=== PATIENT | female | born 1980 | race Two or more races ===

== ENCOUNTER 2021-03-10 15:01 | Day surgery (SDC) | payer BC ==
[~2021-03-10] VITALS: Ht 147.3 cm; Wt 58.1 kg
[2021-03-10] MEDS ORDERED: LACTATED RINGERS 1,000 ML IV SCH (15:30)
[2021-03-10] MEDS ORDERED: LIDOCAINE-MPF 1%, 2ML INFIL ONE (15:30)
[2021-03-10] MEDS ORDERED: CHLORHEXIDINE 15 ML UDC PO ONE (15:30)
[2021-03-10] MEDS ORDERED: MIDAZOLAM 1 MG/ML, 2ML ONE (15:34)
[2021-03-10] MEDS ORDERED: FENTANYL PF 100 MCG/2ML ONE (15:34)
[2021-03-10] MEDS ORDERED: BCP (15:48)
[2021-03-10 15:52] VITALS: BP 116/72
[2021-03-10] MEDS ORDERED: OXYTOCIN 10 UNITS/ML, 1ML ONE (15:55)
[2021-03-10] MEDS ORDERED: SILVER NITRATE STICK TP ONE (15:55)
[2021-03-10] MEDS ORDERED: BUPIVACAINE/PF 0.25% ONE (15:55)
[2021-03-10] MEDS ORDERED: MISOPROSTOL 200 MCG TABLET ONE (15:55)
[2021-03-10] MEDS ORDERED: METHYLERGONOVINE 0.2 MG/ML IM ONE (15:56)
[2021-03-10] MEDS ORDERED: EPINEPHRINE 1 MG/ML, 1ML ONE (15:56)
[2021-03-10 15:59] LABS: BASOPHILS % (AUTO) 1 % (0-1); EOSINOPHILS % (AUTO) 1 % (1-7); LYMPHOCYTES % (AUTO) 34 % (22-44); MEAN CORPUSCULAR HEMOGLOBIN 30.7 pg (27.0-34.8); MEAN CORPUSCULAR HGB CONC 34.2 g/dL (32.4-35.8); MEAN PLATELET VOLUME 7.2 fL (7.4-10.4); MONOCYTES % (AUTO) 6 % (2-9); NEUTROPHILS % (AUTO) 58 % (42-75); PLATELET COUNT 329 x10^3/uL (130-400); RED BLOOD COUNT 4.32 x10^6/uL (3.82-5.3); RED CELL DISTRIBUTION WIDTH 13.6 % (9.6-15.2)
[2021-03-10 16:00] LABS: MD NO
[2021-03-10] MEDS ORDERED: PROMETHAZINE 25 MG/ML, 1ML IVPush PRN (16:00)
[2021-03-10] MEDS ORDERED: FENTANYL PF 100 MCG/2ML IV PRN (16:00)
[2021-03-10] MEDS ORDERED: ONDANSETRON 2MG/ML, 2ML IVPush PRN (16:00)
[2021-03-10] MEDS ORDERED: OXYcodone 5 MG/5 ML ORAL.SOL UDC PO PRN ×2 (16:00→20:00)
[2021-03-10] MEDS ORDERED: HYDROmorphone 1 MG/ML, 1ML INJ IVPush PRN (16:00)
[2021-03-10] MEDS ORDERED: MEPERIDINE/PF 25MG/0.5ML IVPush PRN (16:00)
[2021-03-10] MEDS ORDERED: HYDROcodone/APAP 7.5-325MG/15ML UDC PO PRN (16:00)
[2021-03-10 16:09] LABS: HCG UR SG 1.007 (1.003-1.030)
[2021-03-10] MEDS ORDERED: PROPOFOL 10 MG/ML, 20ML ONE (17:06)
[2021-03-10] MEDS ORDERED: ONDANSETRON 2MG/ML, 2ML ONE (17:06)
[2021-03-10] MEDS ORDERED: DEXAMETHASONE 4 MG/ML, 1ML ONE (17:06)
[2021-03-10] MEDS ORDERED: CEFAZOLIN 1,000 MG ONE (17:06)
[2021-03-10 19:47] VITALS: BP 97/66
[2021-03-10] MEDS ORDERED: morphine SULFATE 10 MG/ML, 1ML IV PRN (20:00)
[2021-03-10] MEDS ORDERED: KETOROLAC 30 MG/1 ML IV PRN (20:00)
[2021-03-10] MEDS ORDERED: IBUP-1222 PO (20:22)
[2021-03-10] MEDS ORDERED: OXYC1TAB14 PO (20:22)
[2021-03-10] MEDS ORDERED: DOCU-131 PO (20:23)
== END 2021-03-10 21:50 | disposition home or self-care (01) ==
LOC: OR 15:01 → 4NE 19:31 → OR 21:50
PROVIDERS: ATTEND Obstetrics & Gynecology
DX: O02.1 Missed abortion (principal); N85.4 Malposition of uterus; Z20.822 Contact with and (suspected) exposure to COVID-19
CPT/HCPCS: 36415; 59820; 81025; 85025; 86850; 86900; 87635; 88305; J0171; J0690; J1100; J2250; J2405; J2590; J2704; J3010; J7120; G0378; J2210